=== PATIENT | female | born 1970 | race Caucasian/White ===

== ENCOUNTER 2017-06-04 17:11 | Inpatient (IN) | payer MEDICAID ==
[~2017-06-04] VITALS: Ht 160 cm; Wt 88.6 kg
[~2017-06-04 17:11] MED LIST: QUET100T PO; VIST50 PO
[2017-06-04] MEDS ORDERED: QUEtiapine FUMARATE 100 MG TABLET PO PRN (17:45)
[2017-06-04] MEDS ORDERED: ZOLPIDEM TARTRATE 10 MG TABLET PO PRN (17:45)
[2017-06-04] MEDS ORDERED: LORazepam 2 MG TABLET PO PRN (17:45)
[2017-06-04 17:48] VITALS: BP 112/92
[2017-06-04] MEDS ORDERED: BusPIRone HCL 10 MG TABLET PO SCH (18:09)
[2017-06-04] MEDS ORDERED: INFLUENZA VIRUS VACCINE QVS 2017-18 (3YR+)/PF 60 MCG/0.5 ML SYRINGE IM ONE (19:30)
[2017-06-04 20:03] VITALS: BP 112/71
[2017-06-04] MEDS ORDERED: QUEtiapine FUMARATE 25 MG TABLET PO SCH (21:00)
[2017-06-05 06:52] LABS: BASOPHILS % (AUTO) 0.6 % (0.0-2.0); EOSINOPHILS % (AUTO) 6.2 % (1.0-6.0); HEMATOCRIT 36.7 % (36-46); HEMOGLOBIN 12.1 g/dL (12.0-16.0); LYMPHOCYTES % (AUTO) 43.7 % (22.0-44.0); MEAN CORPUSCULAR HEMOGLOBIN 28.8 pg (26.0-34.0); MEAN CORPUSCULAR HGB CONC 32.9 G/dL (31.0-37.0); MEAN CORPUSCULAR VOLUME 88 fL (80-100); MONOCYTES # (AUTO) 0.8 K/uL (0.1-1.0); MONOCYTES % (AUTO) 11.3 % (2.0-9.0); NEUTROPHILS # (AUTO) 2.6 K/uL (1.8-7.7); NEUTROPHILS % (AUTO) 38.2 % (40.0-70.0); PLATELET COUNT (AUTO) 278 K/uL (150-450); RED BLOOD CELL COUNT(AUTO) 4.19 MIL/uL (4.00-5.20); RED CELL DISTRIBUTION WIDTH 13.6 % (11.5-14.5)
[2017-06-05 07:14] LABS: ALANINE AMINOTRANSFERASE 24 U/L (12-78); ALKALINE PHOSPHATASE 99 U/L (46-116); ANION GAP 7 mmol/L (8-16); ASPARTATE AMINOTRANSFERASE 31 U/L (15-37); BILIRUBIN,TOTAL 0.4 mg/dL (0.1-1.0); CALCIUM, TOTAL 8.5 mg/dL (8.8-10.5); CARBON DIOXIDE 26 mmol/L (22-29); CHLORIDE 107 mmol/L (98-107); CHOL/HDL RATIO 3.9 (3.9-5.7); CHOLESTEROL 156 mg/dL (131-200); CREATININE 0.56 mg/dL (0.60-1.30); FREE T4 (FREE THYROXINE) 1.15 ng/dL (0.76-1.46); GLOMERULAR FILTR. RATE CALC > 60 mL/min (>60); GLUCOSE,RANDOM 88 mg/dL (70-110); HDL CHOLESTEROL 40 mg/dL (40-60); LDL CHOL (CALC.) 106 mg/dL (0-130); POTASSIUM 3.9 mmol/L (3.5-5.1); SODIUM SERUM 140 mmol/L (136-145); THYROID STIMULATING HORMONE 0.99 uIU/mL (0.36-3.74); TRIGLYCERIDES 51 mg/dL (15-150); UREA NITROGEN, BLOOD 11 mg/dL (7-18)
[2017-06-05 07:49] LABS: HEMOGLOBIN A1C 5.8 % (4.5-6.2)
[2017-06-05 09:51] VITALS: BP 105/59
[2017-06-05] MEDS ORDERED: OLANZapine 5 MG RAPDIS TABLET PO PRN (10:30)
[2017-06-05] MEDS ORDERED: LOPERAMIDE HCL 2 MG CAPSULE PO PRN (10:30)
[2017-06-05] MEDS ORDERED: MAGNESIUM HYDROXIDE SUSPENSION 30 ML UDCUP PO PRN (10:30)
[2017-06-05] MEDS ORDERED: MAG HYDROX/AL HYDROX/SIMETH ES 30 ML SUSPENSION UDCUP PO PRN (10:30)
[2017-06-05] MEDS ORDERED: PROMETHAZINE HCL 25 MG TABLET PO PRN (10:30)
[2017-06-05] MEDS ORDERED: TUBERCULIN, PURIFIED PROTEIN DERIVATIVE 5 TU/0.1 ML SYG ID ONE (10:30)
[2017-06-05] MEDS ORDERED: GuaiFENesin/D-METHORPHAN [SUGAR-FREE] 200-20MG/10 ML SYRUP UDCUP PO PRN (10:30)
[2017-06-05] MEDS ORDERED: HydrOXYzine PAMOATE 50 MG CAPSULE PO PRN (10:30)
[2017-06-05] MEDS ORDERED: ACETAMINOPHEN 325 MG TABLET PO PRN (10:30)
[2017-06-05] MEDS: ACAMPROSATE CALCIUM 333 MG DR TABLET PO SCH ×2 (12:26→17:39)
[2017-06-05] MEDS ORDERED: QUEtiapine FUMARATE 25 MG TABLET PO PRN (15:45)
[2017-06-05 16:15] VITALS: BP 106/59
[2017-06-05] MEDS: BusPIRone HCL 10 MG TABLET PO SCH (17:39)
[2017-06-05] MEDS: THIAMINE HCL 100 MG TABLET PO SCH (17:39)
[2017-06-05] MEDS ORDERED: OLANZapine 5 MG RAPDIS TABLET PO SCH (21:00)
[2017-06-05] MEDS ORDERED: QUEtiapine FUMARATE 25 MG TABLET PO SCH (21:00)
[2017-06-06] MEDS ORDERED: FLUoxetine HCL 20 MG CAPSULE PO SCH (09:00)
[2017-06-06] MEDS: BusPIRone HCL 10 MG TABLET PO SCH ×2 (09:07→16:45)
[2017-06-06] MEDS: ACAMPROSATE CALCIUM 333 MG DR TABLET PO SCH ×3 (09:07→16:45)
[2017-06-06] MEDS: METHADONE HCL 10 MG TABLET PO SCH (09:07)
[2017-06-06] MEDS: MULTIVITAMINS WITH MINERALS, THERAPEUTIC TABLET PO SCH (09:07)
[2017-06-06] MEDS: THIAMINE HCL 100 MG TABLET PO SCH ×2 (09:07→16:45)
[2017-06-06] MEDS: FOLIC ACID 1 MG TABLET PO SCH (09:08)
[2017-06-06 11:35] VITALS: BP 100/63
[2017-06-06 19:04] VITALS: BP 112/65
[2017-06-06] MEDS ORDERED: QUEtiapine FUMARATE 25 MG TABLET PO SCH (21:00)
[2017-06-07] MEDS: FOLIC ACID 1 MG TABLET PO SCH (09:18)
[2017-06-07] MEDS: BusPIRone HCL 10 MG TABLET PO SCH ×2 (09:18→16:26)
[2017-06-07] MEDS: MULTIVITAMINS WITH MINERALS, THERAPEUTIC TABLET PO SCH (09:18)
[2017-06-07] MEDS: METHADONE HCL 10 MG TABLET PO SCH (09:18)
[2017-06-07] MEDS: ACAMPROSATE CALCIUM 333 MG DR TABLET PO SCH ×3 (09:18→16:25)
[2017-06-07] MEDS: THIAMINE HCL 100 MG TABLET PO SCH ×2 (09:19→16:26)
[2017-06-07 19:33] VITALS: BP 125/64
[2017-06-07] MEDS ORDERED: QUEtiapine FUMARATE 100 MG TABLET PO SCH (21:00)
[2017-06-08 08:00] VITALS: BP 97/53
[2017-06-08] MEDS: THIAMINE HCL 100 MG TABLET PO SCH ×2 (09:00→16:36)
[2017-06-08] MEDS: FOLIC ACID 1 MG TABLET PO SCH (09:00)
[2017-06-08] MEDS: ACAMPROSATE CALCIUM 333 MG DR TABLET PO SCH ×3 (09:00→16:36)
[2017-06-08] MEDS: METHADONE HCL 10 MG TABLET PO SCH (09:00)
[2017-06-08] MEDS: MULTIVITAMINS WITH MINERALS, THERAPEUTIC TABLET PO SCH (09:00)
[2017-06-08] MEDS: BusPIRone HCL 10 MG TABLET PO SCH ×2 (09:00→16:36)
[2017-06-08 17:18] VITALS: BP 101/62
[2017-06-08] MEDS: QUEtiapine FUMARATE 100 MG TABLET PO SCH (20:21)
[2017-06-09] MEDS: BusPIRone HCL 10 MG TABLET PO SCH ×2 (08:31→16:24)
[2017-06-09] MEDS: ACAMPROSATE CALCIUM 333 MG DR TABLET PO SCH ×3 (08:31→16:25)
[2017-06-09] MEDS: THIAMINE HCL 100 MG TABLET PO SCH ×2 (08:32→16:26)
[2017-06-09] MEDS: METHADONE HCL 10 MG TABLET PO SCH (08:32)
[2017-06-09] MEDS: MULTIVITAMINS WITH MINERALS, THERAPEUTIC TABLET PO SCH (08:32)
[2017-06-09] MEDS: FOLIC ACID 1 MG TABLET PO SCH (08:32)
[2017-06-09 10:49] VITALS: BP 101/72
[2017-06-09 16:27] VITALS: BP 108/76
[2017-06-09] MEDS: QUEtiapine FUMARATE 100 MG TABLET PO SCH (20:01)
[2017-06-10 08:05] VITALS: BP 99/57
[2017-06-10] MEDS: METHADONE HCL 10 MG TABLET PO SCH (09:08)
[2017-06-10] MEDS: ACAMPROSATE CALCIUM 333 MG DR TABLET PO SCH ×3 (09:08→16:15)
[2017-06-10] MEDS: MULTIVITAMINS WITH MINERALS, THERAPEUTIC TABLET PO SCH (09:08)
[2017-06-10] MEDS: FOLIC ACID 1 MG TABLET PO SCH (09:08)
[2017-06-10] MEDS: THIAMINE HCL 100 MG TABLET PO SCH ×2 (09:08→16:14)
[2017-06-10] MEDS: BusPIRone HCL 10 MG TABLET PO SCH ×2 (09:08→16:14)
[2017-06-10 16:24] VITALS: BP 109/75
[2017-06-10] MEDS: QUEtiapine FUMARATE 100 MG TABLET PO SCH (21:02)
[2017-06-11 08:00] VITALS: BP 90/43
[2017-06-11] MEDS: FOLIC ACID 1 MG TABLET PO SCH (09:47)
[2017-06-11] MEDS: THIAMINE HCL 100 MG TABLET PO SCH (09:47)
[2017-06-11] MEDS: ACAMPROSATE CALCIUM 333 MG DR TABLET PO SCH ×2 (09:47→12:48)
[2017-06-11] MEDS: MULTIVITAMINS WITH MINERALS, THERAPEUTIC TABLET PO SCH (09:47)
[2017-06-11] MEDS: BusPIRone HCL 10 MG TABLET PO SCH (09:47)
[2017-06-11] MEDS: METHADONE HCL 10 MG TABLET PO SCH (09:47)
[2017-06-11] MEDS ORDERED: QUET100T33 PO (11:57)
[2017-06-11] MEDS ORDERED: ACAM333T7 PO (11:57)
[2017-06-11] MEDS ORDERED: BUSP10TA23 PO (11:57)
== END 2017-06-11 14:30 | disposition home or self-care (01) | DRG 750 ==
LOC: 3EI 17:48
PROVIDERS: ADMIT Psychiatry & Neurology Psychiatry; ATTEND Psychiatry & Neurology Psychiatry
PROC: 3E0234Z Introduction of Serum, Toxoid and Vaccine into Muscle, Percutaneous Approach (ICD-10-PCS; principal; 2017-06-04)
DX: F25.9 Schizoaffective disorder, unspecified (principal); G93.41 Metabolic encephalopathy; Z91.19 Patient's noncompliance with other medical treatment and regimen; Z59.0 Homelessness; R45.851 Suicidal ideations; E66.9 Obesity, unspecified; J44.9 Chronic obstructive pulmonary disease, unspecified; F15.90 Other stimulant use, unspecified, uncomplicated; B19.20 Unspecified viral hepatitis C without hepatic coma; F17.210 Nicotine dependence, cigarettes, uncomplicated; Z65.3 Problems related to other legal circumstances; Z68.34 Body mass index [BMI] 34.0-34.9, adult; Z79.899 Other long term (current) drug therapy; Z80.1 Family history of malignant neoplasm of trachea, bronchus and lung; Z23 Encounter for immunization
CPT/HCPCS: 83036; 84439; 84443